=== PATIENT | male | born 2000 | race Caucasian/White ===

== ENCOUNTER 2019-01-03 15:34 | Emergency (ER) | payer MEDICAID ==
[~2019-01-03] VITALS: Ht 180.3 cm; Wt 67.6 kg
[2019-01-03 15:56] VITALS: BP 115/72; Ht 180.3 cm; Wt 67.6 kg
== END 2019-01-03 18:28 | disposition home or self-care (01) ==
LOC: ED 15:34
DX: R51 Headache (principal)